=== PATIENT | female | born 1965 | race Caucasian/White ===

== ENCOUNTER 2018-09-09 08:00 | Outpatient (CLI) | payer MEDICAID ==
[2018-09-09 18:32] LABS: BASOPHILS # (AUTO) 0.1 10^3/uL (0.0-0.1); BASOPHILS % (AUTO) 0.5 %; EOSINOPHILS # (AUTO) 0.4 10^3/uL (0.0-0.7); EOSINOPHILS % (AUTO) 4.4 %; HGB - HEMOGLOBIN 11.9 g/dL (12.0-16.0); LYMPHOCYTES % (AUTO) 20.8 %; MEAN CORPUSCULAR HEMOGLOBIN 28.7 pg (27.0-31.0); MEAN CORPUSCULAR VOLUME 92.8 fL (81.0-99.0); MEAN PLATELET VOLUME 10.1 fL (7.9-10.8); MONOCYTES # (AUTO) 0.7 10^3/uL (0.0-1.0); MONOCYTES % (AUTO) 7.7 %; NEUTROPHILS # (AUTO) 6.4 10^3/uL (1.5-6.6); NEUTROPHILS % (AUTO) 66.3 %; PLT - PLATELET COUNT 274 10^3/uL (130-450); RED BLOOD COUNT 4.14 10^6/uL (4.20-5.40); RED CELL DISTRIBUTION WIDTH 18.4 % (12.0-15.0); WHITE BLOOD COUNT 9.6 x10^3/uL (4.8-10.8)
[2018-09-09 18:41] LABS: ALBUMIN 3.5 g/dL (3.2-5.5); BILIRUBIN,TOTAL 0.4 mg/dL (0.2-1.0); CALCIUM 8.6 mg/dL (8.5-10.3); CREATININE 0.9 mg/dL (0.4-1.0)
== END 2018-09-09 08:01 | disposition home or self-care (01) ==
LOC: LAB.N 08:00
PROVIDERS: ATTEND Physician Assistant Medical
DX: I10 Essential (primary) hypertension (principal); E03.9 Hypothyroidism, unspecified
CPT/HCPCS: 36415; 80053; 84443; 85025

== ENCOUNTER 2018-09-30 19:51 | Outpatient (CLI) | payer MEDICAID ==
--- NOTE | 2018-10-01 09:36 | Ultrasound Report ---
Reason: ARTERIAL BYPASS-R LEG, PVD W/CLAUDICATION, VASCULA Procedure Date: 09/30/2018 Accession Number: [id number] / [id number] Procedure: US - Duplex Ext Veins Bilateral CPT Code: FULL RESULT: EXAM: BILATERAL LOWER EXTREMITY VENOUS ULTRASOUND EXAM DATE: 09/30/2018 08:13 PM. CLINICAL HISTORY: Arterial bypass right lower extremity, peripheral vascular disease with claudication, rule out DVT. COMPARISON: None. TECHNIQUE: Real-time sonographic vascular imaging was performed by the environmental education specialist through the lower extremities utilizing both color-flow and Doppler spectral analysis. Multiple technical service representative static images were saved for review. FINDINGS: Right: Common Femoral Vein (CFV): Normal. CFV-GSV Junction: Normal. Profunda Femoral Vein (PFV): Normal. Femoral Vein (FV) Prox: Normal. Femoral Vein (FV) Mid: Normal. Femoral Vein (FV) Dist: Normal. Popliteal Vein: Normal. Posterior Tibial Veins: Normal. Peroneal Veins: Normal. Left: Common Femoral Vein (CFV): Normal. CFV-GSV Junction: Normal. Profunda Femoral Vein (PFV): Normal. Femoral Vein (FV) Prox: Normal. Femoral Vein (FV) Mid: Normal. Femoral Vein (FV) Dist: Normal. Popliteal Vein: Normal. Posterior Tibial Veins: Normal. Peroneal Veins: Normal. Other: Slightly suboptimal visualization diffusely secondary to body habitus. IMPRESSION: No evidence for deep venous thrombosis bilaterally. RADIA
--- NOTE | 2018-10-02 08:30 | Ultrasound Report ---
Reason: ARTERIAL BYPASS-R LEG, PVD W/CLAUDICATION, VASCULA Procedure Date: 09/30/2018 Accession Number: [id number] / [id number] Procedure: US - Duplex Lwr Ext Arterial Bilat CPT Code: FULL RESULT: EXAM: Bilateral Lower Extremity Arterial Doppler Ultrasound EXAM DATE: 09/30/2018 08:58 PM. CLINICAL HISTORY: Arterial bypass right leg, peripheral vascular disease with claudication, vascular disease. COMPARISON: None. TECHNIQUE: Real-time sonographic vascular imaging was performed by the oven laborer, utilizing color-flow, Doppler flow, and spectral analysis. Multiple wireless sales representative static images were saved for review. FINDINGS: Comparison imaging not available. Patient could not communicate adequately the previous surgical history. This significantly limits the evaluation. On the right, biphasic waveforms are noted in the right common femoral, distal popliteal, distal posterior tibial and the dorsalis pedis arteries. Remaining vessels of the right leg demonstrate diffuse monophasic waveforms. There is a bypass originating from the right common femoral artery and extending distally. Bypass remains patent. No focal stenosis in the bypass graft. Bypass appears to feed the distal right superficial femoral or popliteal artery. There is significant increase in velocity at the distal right popliteal artery compared to the more proximal segment. Spectral waveforms are suggestive of a stenosis of 50-75%. However, no focal area of stenosis identified on color or ba scale imaging. Possible right popliteal artery stent noted. Right anterior tibial, posterior tibial, peroneal and dorsalis pedis arteries are patent but demonstrate slow flow. On the left, diffuse monophasic waveforms are seen in all insonated vessels. No focal area of stenosis identified. Arterial Velocities: Right Lower Extremity: FEED HOUSE SUPERVISOR [place]: PSV 71 cm/sec. FEED HOUSE SUPERVISOR bypass: PSV 149 cm/sec. PSFA [place]: PSV 48 cm/sec. PSFA bypass: PSV 72 cm/sec. MSFA [place]: PSV 22 cm/sec. MSFA bypass: PSV 42 cm/sec. DSFA bypass: PSV 21 cm/sec. PFA: PSV 33 cm/sec. POP proximal: PSV 64 cm/sec. POP distal: PSV 230 cm/sec. BISMARK: PSV 55 cm/sec. J2EE ENGINEER distal: PSV 39 cm/sec. J2EE ENGINEER proximal: PSV 56 cm/sec. FRAN: PSV 45 cm/sec. DPA: PSV 51 cm/sec. Left Lower Extremity: FEED HOUSE SUPERVISOR: PSV 119 cm/sec. PSFA: PSV 36 cm/sec. MSFA: PSV 39 cm/sec. DSFA: PSV 58 cm/sec. PFA: PSV 78 cm/sec. POP: PSV 53 cm/sec. BISMARK: PSV 19 cm/sec. J2EE ENGINEER: PSV 6 cm/sec. FRAN: PSV 28 cm/sec. DPA: PSV 23 cm/sec. IMPRESSION: 1. Significant limitation of this study. Patient is a poor historian and cannot provide surgical history. No comparison imaging available. In addition, no prior reports provided. 2. On the right, patient is status post bypass from the right common femoral artery to the popliteal or distal femoral artery. This probably represents a femoral-popliteal bypass. Graft is patent. No focal graft stenosis is noted. 3. Elevated velocities are noted in the distal right popliteal artery compared to the more proximal segment. However, no focal color or grayscale abnormality suggesting stenosis is noted. CT angiogram with runoff could be used for confirmation and to evaluate a potential occult stenosis. 4. Diffusely abnormal monophasic waveforms extending from the left common femoral artery to the ankle without focal area of high-grade stenosis. More central high-grade stenosis not excluded. RADIA
== END 2018-09-30 19:52 | disposition home or self-care (01) ==
LOC: DI 19:51
PROVIDERS: ATTEND Nurse Practitioner Gerontology
DX: I73.9 Peripheral vascular disease, unspecified (principal); Z95.9 Presence of cardiac and vascular implant and graft, unspecified
CPT/HCPCS: 93925; 93970

== ENCOUNTER 2018-10-31 09:31 | Outpatient (CLI) | payer MEDICAID ==
--- NOTE | 2018-11-01 10:19 | XRAY Report ---
Reason: PRODUCTIVE COUGH Procedure Date: 10/31/2018 Accession Number: [id number] / [id number] Procedure: XRN - Chest 2 View X-Ray CPT Code: 72667 FULL RESULT: EXAM: CHEST RADIOGRAPHY EXAM DATE: 10/31/2018 10:02 AM. CLINICAL HISTORY: Productive cough. COMPARISON: None. TECHNIQUE: 2 views. FINDINGS: Lungs/Pleura: No focal opacities evident. No pleural effusion. No pneumothorax. Normal volumes. Mediastinum: Heart and mediastinal contours are unremarkable. Other: No fractures identified. IMPRESSION: Normal 2-view chest radiography. RADIA
== END 2018-10-31 09:32 | disposition home or self-care (01) ==
LOC: DI.N 09:31
PROVIDERS: ATTEND Family Medicine
DX: R05 Cough (principal)
CPT/HCPCS: 71046

== ENCOUNTER 2018-11-05 10:24 | Outpatient (CLI) | payer MEDICAID ==
[2018-11-05 12:47] LABS: THYROID STIMULATING HORMONE 1.8 uIU/mL (0.34-5.60)
[2018-11-05 12:49] LABS: FREE T4 (FREE THYROXINE) 1.47 ng/dL (0.58-1.64)
== END 2018-11-05 23:59 | disposition home or self-care (01) ==
LOC: LAB.N 10:24
PROVIDERS: ATTEND Physician Assistant Medical
DX: E03.9 Hypothyroidism, unspecified (principal)
CPT/HCPCS: 36415; 84439; 84443

== ENCOUNTER 2019-02-01 17:39 | Emergency (ER) | payer MEDICAID ==
[2019-02-01] MEDS ORDERED: SODIUM CHLORIDE 0.9% 1,000 ML IV ONE (18:03)
[2019-02-01] MEDS ORDERED: MECLIZINE 12.5 MG TABLET PO STA (18:03)
--- NOTE | 2019-02-01 18:09 | ED Physician Documentation ---
History of Present Illness - Stated complaint Stated Complaint: DIZZY, HEAD ACHE, RT EAR PX - Chief complaint Chief Complaint: Cardiac - History obtained from History obtained from: Patient - History of Present Illness Pain level max: 3 Pain level now: 2 Improved by: lying down Worsened by: standing up - Additonal information Additional information: 53-year-old female presents to the emergency department after feeling lightheaded earlier today. She states she felt like she was going to fall and pass out. No chest pain. No palpitations. No shortness of breath. The room was not spinning. No focal neurological deficits. No numbness or tingling. She states that she has peripheral arterial disease. She continues to smoke heavily. She also states that she does not drink any water, she only drinks diet Pepsi and states that she has a can in her hand "04/09". Review of Systems Constitutional: denies: Fever, Chills Ears: reports: Ear pain (R) Nose: reports: Rhinorrhea / runny nose, Congestion Respiratory: reports: Cough (dry) GI: denies: Abdominal Pain, Vomiting, Diarrhea Skin: denies: Rash Musculoskeletal: denies: Neck pain, Back pain Neurologic: denies: Focal weakness, Numbness, Confused, Headache PD PAST MEDICAL HISTORY - Past Medical History Past Medical History: Yes Cardiovascular: Hypertension, Other (Peripheral arterial disease) - Present Medications Home Medications: Ambulatory Orders Medication Instructions Recorded Confirmed Cetirizine HCl/Pseudoephedrine 1 each PO BID PRN #30 tab.er.12h 02/01/19 [Zyrtec-D Tablet] - Allergies Allergies/Adverse Reactions: Allergies Allergy/AdvReac Type Severity Reaction Status Date / Time oxycodone [From OxyContin] Allergy Itching Verified 02/01/19 17:54 - Living Situation Living Situation: reports: With family Living Arrangement: reports: At home - Social History Does the pt smoke?: Yes Does the pt drink ETOH?: Yes - Family History Family history: reports: Non contributory PD ED PE NORMAL - Vitals Vital signs reviewed: Yes - General General: Alert and oriented X 3, No acute distress, Well developed/nourished - HEENT HEENT: Atraumatic, PERRL, EOMI, Ears normal, Moist mucous membranes, Pharynx benign - Neck Neck: Supple, no meningeal sign, No bony TTP - Cardiac Cardiac: RRR, Strong equal pulses - Respiratory Respiratory: No respiratory distress, Clear bilaterally - Abdomen Abdomen: Soft, Non tender, Non distended - Back Back: No spinal TTP - Derm Derm: Warm and dry - Extremities Extremities: No tenderness to palpate, Normal ROM s pain, No edema, No calf tenderness / cord - Neuro Neuro: Alert and oriented X 3, billing clerk 2-12 intact, No motor deficit, No sensory deficit, Normal speech, Other (Normal cerebellar testing. Normal [id number]. Normal gait. No nystagmus.) Eye Opening: Spontaneous Motor: Obeys Commands Verbal: Oriented GCS Score: 15 - Psych Psych: Normal mood, Normal affect Results - Vitals Vitals: Vital Signs - 24 hr 02/01/19 02/01/19 17:49 19:41 Temperature 36.6 C Heart Rate 77 76 Respiratory 15 18 Rate Blood Pressure 185/95 H 177/83 H O2 Saturation 100 100 Oxygen O2 Source Room air - EKG (time done) 1748 Rate: Rate (enter#) (76) Rhythm: NSR [place]: Normal Intervals: Normal ID QRS: Normal Ischemia: Normal ST segments - Labs Labs: Laboratory Tests 02/01/19 02/01/19 02/01/19 18:05 18:05 18:15 WBC 12.1 H RBC 4.48 Hgb 12.2 Hct 38.9 MCV 86.8 MCH 27.2 MCHC 31.4 L RDW 17.4 H Plt Count 318 MPV 9.1 Neut # (Auto) 7.6 H Lymph # (Auto) 3.0 [place] # (Auto) 1.0 Eos # (Auto) 0.4 Baso # (Auto) 0.1 Absolute Nucleated RBC 0.00 Nucleated RBC % 0.0 Sodium 139 Potassium 3.5 Chloride 104 Carbon Dioxide 25 Anion Gap 10.0 BUN 17 Creatinine 1.0 Estimated GFR (MDRD) 58 L Glucose 102 H Calcium 9.1 Total Bilirubin 0.4 AST 18 ALT 14 Alkaline Phosphatase 143 H Total Protein 7.6 Albumin 3.8 Globulin 3.8 Albumin/Globulin Ratio 1.0 Lipase 40 Urine Color YELLOW Urine Clarity CLEAR Urine pH 6.0 Ur Specific [place] <=1.005 Urine Protein NEGATIVE Urine Glucose (UA) NEGATIVE Urine Ketones NEGATIVE Urine Occult Blood TRACE-INTA Urine Nitrite NEGATIVE Urine Bilirubin NEGATIVE Urine Urobilinogen 0.2 (NORMAL) Ur Leukocyte Esterase NEGATIVE Ur Microscopic Review NOT INDICATED Urine Culture Comments NOT INDICATED PD MEDICAL DECISION MAKING - ED course Complexity details: reviewed results, re-evaluated patient, considered differential, d/w patient ED course: 53-year-old female presents to the emergency department what appears to be dehydration. Feels better after IV fluids. Also appears to have a viral upper respiratory infection. No evidence of vertigo. No evidence of cerebellar stroke. Patient is well-appearing, nontoxic. Normal gait. Patient counseled regarding signs and symptoms for which I believe and urgent re-evaluation would be necessary. Patient with good understanding of and agreement to plan and is comfortable going home at this time This document was made in part using voice recognition software. While efforts are made to proofread this document, sound alike and grammatical errors may occur. No evidence of vestibular neuritis. Departure - Departure Disposition: 01 Home, Self Care Clinical Impression: Viral URI, Dehydration, Lightheadedness Condition: Good Instructions: ED Dehydration, ED Viral Syndrome Follow-Up: Aamir Kern PA-C [Primary Care Provider] - Within 1 week Prescriptions: Cetirizine HCl/Pseudoephedrine [Zyrtec-D Tablet] 1 each PO BID PRN #30 tab.er.12h PRN Reason: nasal congestion Comments: Drink plenty of water at home. Return if you worsen. Follow-up with your doctor if not better within 1 week. Discharge Date/Time: 02/01/19 19:45
[2019-02-01 18:11] LABS: BASOPHILS # (AUTO) 0.1 10^3/uL (0.0-0.1); BASOPHILS % (AUTO) 0.7 %; EOSINOPHILS # (AUTO) 0.4 10^3/uL (0.0-0.7); EOSINOPHILS % (AUTO) 3.4 %; HGB - HEMOGLOBIN 12.2 g/dL (12.0-16.0); LYMPHOCYTES % (AUTO) 24.3 %; MEAN CORPUSCULAR HEMOGLOBIN 27.2 pg (27.0-31.0); MEAN CORPUSCULAR HGB CONC 31.4 g/dL (32.0-36.0); MEAN CORPUSCULAR VOLUME 86.8 fL (81.0-99.0); MEAN PLATELET VOLUME 9.1 fL (7.9-10.8); MONOCYTES % (AUTO) 8.5 %; NEUTROPHILS # (AUTO) 7.6 10^3/uL (1.5-6.6); NEUTROPHILS % (AUTO) 62.5 %; PLT - PLATELET COUNT 318 10^3/uL (130-450); RED BLOOD COUNT 4.48 10^6/uL (4.20-5.40); RED CELL DISTRIBUTION WIDTH 17.4 % (12.0-15.0); WHITE BLOOD COUNT 12.1 x10^3/uL (4.8-10.8)
[2019-02-01 18:25] LABS: ALBUMIN 3.8 g/dL (3.2-5.5); BILIRUBIN,TOTAL 0.4 mg/dL (0.2-1.0); CALCIUM 9.1 mg/dL (8.5-10.3); TOTAL PROTEIN 7.6 g/dL (6.7-8.2)
[2019-02-01] MEDS ORDERED: MECLIZINE 12.5 MG TABLET PO ONE (18:29)
[2019-02-01 18:31] LABS: BILIRUBIN,URINE NEGATIVE (NEGATIVE); GLUCOSE, URINE (UA) NEGATIVE (NEGATIVE); KETONES,URINE (UA) NEGATIVE (NEGATIVE); LEUKOCYTE ESTERASE, URINE NEGATIVE (NEGATIVE); NITRITE,URINE NEGATIVE (NEGATIVE); OCCULT BLOOD,URINE TRACE-INTA (NEGATIVE); PROTEIN,URINE NEGATIVE (NEGATIVE); UROBILINOGEN,URINE 0.2 (NORMAL) E.U./dL (NORMAL)
[2019-02-01 18:33] LABS: CLARITY,URINE CLEAR (CLEAR)
[2019-02-01 19:42] VITALS: BP 177/83
== END 2019-02-01 19:45 | disposition home or self-care (01) ==
LOC: ED 17:39
DX: E86.0 Dehydration (principal); R42 Dizziness and giddiness; J06.9 Acute upper respiratory infection, unspecified; I10 Essential (primary) hypertension; I73.9 Peripheral vascular disease, unspecified; F17.200 Nicotine dependence, unspecified, uncomplicated
CPT/HCPCS: 36415; 80053; 81003; 83690; 85025; 93005; 96360; 99284; A9270; 81001; 87086

== ENCOUNTER 2019-07-15 11:02 | Emergency (ER) | payer MEDICAID ==
--- NOTE | 2019-07-15 11:30 | ED Physician Documentation ---
PD HPI BACK PAIN - Stated complaint Stated Complaint: BACK PX - Chief complaint Chief Complaint: Back Pain - History obtained from History obtained from: Patient - History of Present Illness Timing - onset: How many days ago (5-6) Timing - duration: Days (onset 5-6 days ago of low back pain with painting a deck. Pain worse after ends of days. Not hurting as much while painting. Pain worse with stiffness last evening and overnight. Hurts with ROm this morning.) Timing - details: Gradual onset, Still present (worse last night and today, with ROM), Waxing and waning Location: Lower, Right, Left Quality: Pain, Spasm. No: Sharp, Tearing Associated symptoms: No: Fever, Weakness, Numbness, Incontinent of urine Improves with: Rest Worsened by: Movement, Twisting. 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 : None HEENT: None Psych: None Musculoskeletal: None Derm: None - Past Surgical History Past Surgical History: No - Present Medications Home Medications: Ambulatory Orders Medication Instructions Recorded Confirmed Cetirizine HCl/Pseudoephedrine 1 each PO BID PRN #30 tab.er.12h 02/01/19 [Zyrtec-D Tablet] Hydrocodone/Acetaminophen 1 - 2 each PO Q6H PRN #20 tablet 07/15/19 [Hydrocodon-Acetaminophen 5-325] Naproxen 500 mg PO BID #20 tablet 07/15/19 Tizanidine HCl 4 mg PO TID PRN #25 capsule 07/15/19 dexAMETHasone [Decadron] 4 mg PO DAILY #5 tablet 07/15/19 - Allergies Allergies/Adverse Reactions: Allergies Allergy/AdvReac Type Severity Reaction Status Date / Time oxycodone [From OxyContin] AdvReac Itching Verified 07/15/19 11:07 - Social History Does the pt smoke?: Yes Smoking Status: Current every day smoker Does the pt drink ETOH?: Yes PD ED PE NORMAL - Vitals Vital signs reviewed: Yes - General General: Alert and oriented X 3, Well developed/nourished, Other (appears uncomfortable and has stiff/guarded ROM of the lower back. Hurts most with arching and twisting low back, as she demonstrates the movements that hurt worst. ) - Neck Neck: Supple, no meningeal sign, No adenopathy - Cardiac Cardiac: RRR, No murmur - Respiratory Respiratory: Clear bilaterally - Abdomen Abdomen: Normal bowel sounds, Soft, Non tender, Non distended - Back Back: No CVA TTP, No spinal TTP (tender some in lower lumbar paravertebral muscles. No focal tenderness. No redness, rash nor sores. ) - Derm Derm: Normal color, Warm and dry, No rash - Extremities Extremities: No edema, No calf tenderness / cord - Neuro Neuro: Alert and oriented X 3, No motor deficit, No sensory deficit, Normal sp eech Results - Vitals Vitals: Vital Signs - 24 hr 07/15/19 07/15/19 07/15/19 11:07 12:11 13:27 Temperature 36.4 C L Heart Rate 93 79 88 Respiratory 20 18 18 Rate Blood Pressure 167/102 H 154/94 H 144/86 H O2 Saturation 100 97 96 Oxygen O2 Source Room air PD MEDICAL DECISION MAKING - ED course Complexity details: re-evaluated patient (back pain improving but after the meds, she said she developed some epigastric/lower chest pressure. ECG normal and symptoms improved with GI cocktail. Feeling some what lightheaded after meds. ), considered differential, d/w patient Departure - Departure Disposition: 01 Home, Self Care Clinical Impression: Acute low back pain Qualifiers: Back pain laterality: bilateral Sciatica presence: without sciatica Qualified Code(s): M54.5 - Low back pain Condition: Stable Record reviewed to determine appropriate education?: Yes Instructions: ED Low Back Pain Injury Prescriptions: dexAMETHasone [Decadron] 4 mg PO DAILY #5 tablet Hydrocodone/Acetaminophen [Hydrocodon-Acetaminophen 5-325] 1 - 2 each PO Q6H PRN #20 tablet PRN Reason: pain Naproxen 500 mg PO BID #20 tablet Tizanidine HCl 4 mg PO TID PRN #25 capsule PRN Reason: Spasms Comments: Heat or cold whichever feels better. Gentle stretching for the low back. Physical treatments such as massage and chiropractic are good for this as well. Anti-inflammatories of naproxen and steroidal Decadron as directed. Add tizanidine muscle relaxant for spasm and stiffness. To that add Tylenol 4 times a day for pain or hydrocodone for worse pain. Recheck if not improving well over the next several days and resolved in a week or so, and return if worsening. Discharge Date/Time: 07/15/19 13:31
[2019-07-15] MEDS ORDERED: HYDROmorphone 2 MG/ML VIAL IM STA (11:43)
[2019-07-15] MEDS ORDERED: diazePAM 5 MG TABLET PO STA (11:43)
[2019-07-15] MEDS ORDERED: KETOROLAC 30 MG/ML VIAL IM STA (11:43)
[2019-07-15] MEDS ORDERED: CHERRY SYRUP 10 ML UDC PO ONE (11:43)
[2019-07-15] MEDS ORDERED: DEXAMETHASONE 10 MG/ML VIAL PO STA (11:43)
[2019-07-15] MEDS ORDERED: MAG HYDROX/AL HYDROX/SIMETH 30 ML UDC PO STA (12:52)
[2019-07-15] MEDS ORDERED: LIDOCAINE VISCOUS 2% 15 ML UDC MM STA (12:52)
[2019-07-15 13:31] VITALS: BP 144/86
== END 2019-07-15 13:31 | disposition home or self-care (01) ==
LOC: ED 11:02
DX: M54.5 Low back pain (principal); R10.13 Epigastric pain; I10 Essential (primary) hypertension; F17.200 Nicotine dependence, unspecified, uncomplicated
CPT/HCPCS: 93005; 96372; 99283; 99284; A9270; J1170

== ENCOUNTER 2019-11-11 13:37 | Outpatient (CLI) | payer MEDICAID ==
[2019-11-11 14:44] LABS: BASOPHILS # (AUTO) 0.1 10^3/uL (0.0-0.1); BASOPHILS % (AUTO) 0.6 %; EOSINOPHILS # (AUTO) 0.4 10^3/uL (0.0-0.7); EOSINOPHILS % (AUTO) 4.9 %; HGB - HEMOGLOBIN 12.6 g/dL (12.0-16.0); LYMPHOCYTES # (AUTO) 2.2 10^3/uL (1.5-3.5); LYMPHOCYTES % (AUTO) 26.6 %; MEAN CORPUSCULAR HEMOGLOBIN 26.9 pg (27.0-31.0); MEAN CORPUSCULAR HGB CONC 32.1 g/dL (32.0-36.0); MEAN CORPUSCULAR VOLUME 83.8 fL (81.0-99.0); MEAN PLATELET VOLUME 9.4 fL (7.9-10.8); MONOCYTES # (AUTO) 0.5 10^3/uL (0.0-1.0); NEUTROPHILS # (AUTO) 5.2 10^3/uL (1.5-6.6); NEUTROPHILS % (AUTO) 61.5 %; PLT - PLATELET COUNT 355 10^3/uL (130-450); RED BLOOD COUNT 4.68 10^6/uL (4.20-5.40); RED CELL DISTRIBUTION WIDTH 16.7 % (12.0-15.0); WHITE BLOOD COUNT 8.4 x10^3/uL (4.8-10.8)
[2019-11-11 14:57] LABS: ALBUMIN 3.8 g/dL (3.2-5.5); ALBUMIN/GLOBULIN RATIO 1.1 (1.0-2.2); ALKALINE PHOSPHATASE 167 IU/L (42-121); ALT ALANINE AMINOTRANSFERASE 24 IU/L (10-60); AST ASPARTATE AMINOTRANSFERASE 21 IU/L (10-42); BILIRUBIN,TOTAL 0.5 mg/dL (0.2-1.0); BUN - BLOOD UREA NITROGEN 17 mg/dL (6-20); CALCIUM 9.4 mg/dL (8.5-10.3); CARBON DIOXIDE - CO2 24 mmol/L (21-32); CHLORIDE 104 mmol/L (101-111); CHOL/HDL RATIO 4.8 (<4.4); CHOLESTEROL 157 mg/dL; GLUCOSE 174 mg/dL (70-100); HDL CHOLESTEROL 33 mg/dL; LDL CHOLESTEROL,CALCULATED 84 mg/dL; LDL/HDL RATIO 2.5 (<4.4); SODIUM 139 mmol/L (135-145); TOTAL PROTEIN 7.2 g/dL (6.7-8.2); VLDL CHOLESTEROL 40 mg/dL
[2019-11-11 16:23] LABS: FREE T4 (FREE THYROXINE) 1.76 ng/dL (0.58-1.64)
--- NOTE | 2019-11-11 16:38 | DEXA Report ---
PROCEDURE: Dexa Spine and/or Hip INDICATIONS: POSTMENOPAUSAL TECHNIQUE: Dual energy x-ray absorptiometry (DXA) was performed on a Hoods System. Regions measur ed are the AP Spine, femoral neck, and if needed forearm. COMPARISON: None. FINDINGS: Lumbar Spine: Bone Mineral Density 0.928 g/cm/cm,T score -2.1, osteopenia Left Hip: Bone Mineral Density 0.925 g/cm/cm,T score -0.7, normal Left Femoral Neck: Bone Mineral Density 1.030 g/cm/cm, T score -0.1, normal (T score greater or equal to -1.0: NORMAL) (T score from -1.1 to -2.4: OSTEOPENIA) (T score less than or equal to -2.5 to: OSTEOPOROSIS) Impression: 1. Osteopenia in the lumbar spine raises the patient's 10 year fracture risk. 2. Normal left hip bone mineral density. Patients with diagnosis of osteoporosis or osteopenia should have regular bone mineral density assess ment. For those eligible for Medicare, routine testing is allowed once every 2 years. Testing frequ ency can be increased for patients who have rapidly progressing disease or for those who are receivin g medical therapy to restore bone mass. Reviewed by: Aliya Sheriff MD on 11/11/2019 4:37 PM PDT Approved by: Aliay Sheriff MD on 11/11/2019 4:37 PM PDT Station ID: [id number]
[2019-11-11 20:43] LABS: HEMOGLOBIN A1c% 6.9 % (4.27-6.07)
== END 2019-11-11 13:38 | disposition home or self-care (01) ==
LOC: DI 13:37
PROVIDERS: ATTEND Nurse Practitioner Family
DX: M85.88 Other specified disorders of bone density and structure, other site (principal); Z78.0 Asymptomatic menopausal state; E03.9 Hypothyroidism, unspecified; I10 Essential (primary) hypertension; E66.3 Overweight; F32.9 Major depressive disorder, single episode, unspecified
CPT/HCPCS: 36415; 77080; 80053; 80061; 83036; 83721; 84439; 84443; 85025

== ENCOUNTER 2019-11-28 08:18 | Outpatient (CLI) | payer MEDICAID ==
--- NOTE | 2019-12-09 15:49 | Mammography Report ---
BILATERAL DIGITAL SCREENING MAMMOGRAM 3D/2D: 11/28/2019 CLINICAL: Family history of breast cancer. Routine screening. No prior exams were available for comparison. The tissue of both breasts is predominantly fatty. No significant masses, calcifications, or other findings are seen in either breast. IMPRESSION: NEGATIVE There is no mammographic evidence of malignancy. A 1 year screening mammogram is recommended. This exam was interpreted at Station ID: [id number]. NOTE: For mammograms, a report in lay terms will be sent to the patient. Approximately 15% of breast malignancies will not be visualized mammographically. In the management of a palpable breast mass, a negative mammogram must not discourage biopsy of a clinically suspicious lesion. Electronically Signed By: Aliya su/ashleigh:12/08/2019 14:30:45 ACR BI-RADS Category 1: Negative 3341F PARENCHYMAL PATTERN: (F) - The breast(s) demonstrate(s) diffuse fatty replacement. BI-RADS CATEGORY: (1) - 1 RECOMMENDATION: (ANNUAL) - Recommend routine annual screening mammography. [id number] 1 year screening LATERALITY: (B)
== END 2019-11-28 08:19 | disposition home or self-care (01) ==
LOC: DI.N 08:18
DX: Z12.31 Encounter for screening mammogram for malignant neoplasm of breast (principal); Z80.3 Family history of malignant neoplasm of breast
CPT/HCPCS: 77063; 77067

== ENCOUNTER 2020-01-03 12:32 | Emergency (ER) | payer MEDICAID ==
--- NOTE | 2020-01-03 13:21 | ED Physician Documentation ---
History of Present Illness - Stated complaint Stated Complaint: RT LEG PX/BURNING - Chief complaint Chief Complaint: Ext Problem - History obtained from History obtained from: Patient - Additonal information Additional information: 54-year-old woman has had extensive issues with peripheral vascular disease in her legs. Her vascular surgeon is Dr. Thakur in [place]. She has had a bypass in the right leg followed by angioplasties in the left followed by some sort of other bypass in the left. Over the last week she has had rapidly progressive claudication of the right leg, a burning after about 30 steps which goes away with rest. She is on a blood thinner, She does not know which one. She was on Plavix but that was switched to something else because it was not working, then she was switched to something else which she does not know because her insurance would not pay for the second 1. Anyway the current blood thinner is once a day. She does not recognize the name Bro. 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 : None HEENT: None Psych: None Musculoskeletal: None Derm: None - Past Surgical History Past Surgical History: No - Present Medications Home Medications: Ambulatory Orders Medication Instructions Recorded Confirmed Cetirizine HCl/Pseudoephedrine 1 each PO BID PRN #30 tab.er.12h 02/01/19 [Zyrtec-D Tablet] Hydrocodone/Acetaminophen 1 - 2 each PO Q6H PRN #20 tablet 07/15/19 [Hydrocodon-Acetaminophen 5-325] Naproxen 500 mg PO BID #20 tablet 07/15/19 Tizanidine HCl 4 mg PO TID PRN #25 capsule 07/15/19 dexAMETHasone [Decadron] 4 mg PO DAILY #5 tablet 07/15/19 - Allergies Allergies/Adverse Reactions: Allergies Allergy/AdvReac Type Severity Reaction Status Date / Time oxycodone [From OxyContin] AdvReac Itching Verified 01/03/20 12:35 - Social History Does the pt smoke?: Yes Smoking Status: Current every day smoker Does the pt drink ETOH?: Yes PD ED PE NORMAL - Vitals Vital signs reviewed: Yes - General General: Alert and oriented X 3, No acute distress - Cardiac Cardiac: RRR, No murmur - Respiratory Respiratory: No respiratory distress, Clear bilaterally - Abdomen Abdomen: Non tender - Back Back: No CVA TTP, No spinal TTP - Derm Derm: Normal color, Warm and dry - Extremities Extremities: Other (Pulses on either side, but her feet do seem warm and well perfused. No calf tenderness or swelling.) - Neuro Neuro: Alert and oriented X 3, Normal speech Results - Vitals Vitals: Vital Signs - 24 hr 01/03/20 01/03/20 01/03/20 12:35 15:10 16:28 Temperature 36.6 C 36.5 C 36.7 C Heart Rate 90 70 77 Respiratory 16 18 18 Rate Blood Pressure 165/74 H 147/80 H 154/91 H O2 Saturation 100 100 100 Oxygen O2 Source Room air - Labs Labs: Laboratory Tests 01/03/20 01/03/20 13:15 13:15 WBC 8.5 RBC 4.80 Hgb 13.0 Hct 39.8 MCV 82.9 MCH 27.1 MCHC 32.7 RDW 18.3 H Plt Count 341 MPV 9.2 Neut # (Auto) 5.1 Lymph # (Auto) 2.2 Dunn # (Auto) 0.7 Eos # (Auto) 0.4 Baso # (Auto) 0.1 Absolute Nucleated RBC 0.00 Nucleated RBC % 0.0 Sodium 138 Potassium 3.0 L Chloride 101 Carbon Dioxide 27 Anion Gap 10.0 BUN 16 Creatinine 1.0 Estimated GFR (MDRD) 58 L Glucose 118 H Calcium 9.4 - Rads (name of study) CT angiography of the abdomen with runoff Radiology: EMP read contemporaneously (Patent common iliac artery stents, patent left superficial femoral artery stent. 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 One-vessel runoff on the right and two-vessel runoff on the left.) PD MEDICAL DECISION MAKING - ED course ED course: 54-year-old woman with progressive claudication in the setting of known peripheral vascular disease was sent in by her vascular surgeon for CT and findings as shown. I discussed the case by phone with him, Dr Thakur, and they will see her early this week. Departure - Departure Disposition: 01 Home, Self Care Clinical Impression: Claudication Condition: Good Record reviewed to determine appropriate education?: Yes Instructions: ED PVD Comments: You should hear from Dr. Thakur's office by 10am Sunday. If not call [phone] to see him Discharge Date/Time: 01/03/20 16:30
[2020-01-03 13:25] LABS: BASOPHILS # (AUTO) 0.1 10^3/uL (0.0-0.1); BASOPHILS % (AUTO) 0.7 %; EOSINOPHILS # (AUTO) 0.4 10^3/uL (0.0-0.7); EOSINOPHILS % (AUTO) 4.4 %; LYMPHOCYTES # (AUTO) 2.2 10^3/uL (1.5-3.5); LYMPHOCYTES % (AUTO) 26.4 %; MEAN CORPUSCULAR HEMOGLOBIN 27.1 pg (27.0-31.0); MEAN CORPUSCULAR HGB CONC 32.7 g/dL (32.0-36.0); MEAN CORPUSCULAR VOLUME 82.9 fL (81.0-99.0); MEAN PLATELET VOLUME 9.2 fL (7.9-10.8); MONOCYTES # (AUTO) 0.7 10^3/uL (0.0-1.0); MONOCYTES % (AUTO) 8.2 %; NEUTROPHILS # (AUTO) 5.1 10^3/uL (1.5-6.6); NEUTROPHILS % (AUTO) 60.1 %; PLT - PLATELET COUNT 341 10^3/uL (130-450); RED CELL DISTRIBUTION WIDTH 18.3 % (12.0-15.0); WHITE BLOOD COUNT 8.5 x10^3/uL (4.8-10.8)
[2020-01-03 13:34] LABS: CALCIUM 9.4 mg/dL (8.5-10.3)
[2020-01-03] MEDS ORDERED: IOVERSOL 320 100 ML VIAL IVP ONE ×3 (14:03→17:39)
--- NOTE | 2020-01-03 15:56 | CT Report ---
PROCEDURE: ANGIO ABD RUNOFF W/WO - B/L INDICATIONS: Progressive claudication with unclear vascular maureen CONTRAST: IV CONTRAST: Optiray 320 ml: 125 PO CONTRAST: *NO PO CONTRAST TECHNIQUE: After the administration of intravenous contrast, 2 and 5 mm sections acquired from T12 to the feet, with optional delayed image acquisition from the knees to the feet. 3-dimensional maximum intensity projection (MIP) coronal and sagittal reformats, and/or 3-dimensional volume rendering reformatting w as then performed. For radiation dose reduction, the following was used: automated exposure control , adjustment of mA and/or kV according to patient size. COMPARISON: Correlation is made with prior lower extremity arterial ultrasound, 09/30/2018 FINDINGS: Image quality: Excellent. Extravascular tissues: Lung bases are clear. Heart size is normal. Liver the liver demonstrates no rmal size. Increased liver echogenicity is seen. This is nonspecific, yet it is most commonly attribu rubin to fatty infiltration. Gallbladder is not definitely seen Biliary system is non dilated. The sp yasmine demonstrates a lobulated appearance, yet without focal masses. Pancreas enhances normally. No a drenal nodules. Kidneys are normal in size and enhancement, without hydronephrosis. Non opacified b owel loops demonstrate normal wall thickness and enhancement. A normal appendix is incidentally note d. No free fluid or air. No retroperitoneal or mesenteric adenopathy. No ventral hernias. Bladde r wall thickness is normal. This patient is status post hysterectomy. No adnexal masses can be seen. No inguinal hernias or adenopathy. No suspicious bony lesions. No vertebral body compression frac tures. Abdominal aorta: The aorta demonstrates atherosclerotic calcification and irregularity. No aneurysm is seen. No kanwal stenosis can be seen. Right lower extremity: The right lower extremity arterial system demonstrates atherosclerotic calcif ication and irregularity. There is approximately 50% narrowing seen involving the right common iliac artery, just proximal to the patent right common iliac stent. Irregular flow seen within the right in ternal iliac artery. The right external iliac artery demonstrates 60-70% stenosis. The right common f emoral artery is within normal limits. The right profunda femoris artery is unremarkable. Atheroscler otic irregularity is seen within the right superficial femoral artery, yet without a focal stenosis. There is a right distal superficial artery aneurysm seen, with partial thrombosis, with approximately 90% narrowing. Normal flow seen within the right popliteal artery. The right anterior cerebral arter y demonstrates normal flow to its distal aspect. The right posterior tibial artery is occluded proxim al. The right peroneal artery is occluded distally. Left lower extremity: The left lower extremity arterial system demonstrates atherosclerotic irregula rity throughout. There is a patent left common iliac stent. Approximately 50% narrowing is seen just beyond the left common iliac artery stent. There is poor flow seen within the left internal iliac art sudha. The left external iliac artery demonstrates irregularity, with no without a focal narrowing. The left common iliac artery and profunda femoris artery are within normal limits. The left superficial femoral artery is occluded. There is a patent left superficial artery that is seen that joins with th e arterial system at the popliteal region. The popliteal artery is irregular, yet patent. Normal flow is seen at the distal aspects of the left anterior and posterior tibial arteries. There is poor flow at the distal left peroneal artery. IMPRESSION: Patent common iliac artery stents are seen. There is a patent left superficial femoral artery stent. 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 Please consider interventional radiology consultation One-vessel runoff is seen on the right and there is two-vessel runoff seen on the left. Incidental note is made of: Presumed cholecystectomy Hysterectomy Normal appendix Reviewed by: David Curry MD on 01/03/2020 2:55 PM [facility] Approved by: David Curry MD on 01/03/2020 2:55 PM [facility] Station ID: [id number]
[2020-01-03 16:29] VITALS: BP 154/91
== END 2020-01-03 16:30 | disposition home or self-care (01) ==
LOC: ED 12:32
DX: I73.9 Peripheral vascular disease, unspecified (principal); I74.3 Embolism and thrombosis of arteries of the lower extremities; Z79.01 Long term (current) use of anticoagulants; I10 Essential (primary) hypertension; F17.200 Nicotine dependence, unspecified, uncomplicated
CPT/HCPCS: 36415; 75635; 80048; 85025; 99284; Q9967

== ENCOUNTER 2020-04-26 16:34 | Outpatient (CLI) | payer MEDICAID | END 2020-04-26 16:35 | disposition home or self-care (01) | LOC: COV 16:34 | PROVIDERS: ATTEND Surgery | DX: Z01.812 Encounter for preprocedural laboratory examination (principal); K21.9 Gastro-esophageal reflux disease without esophagitis; R10.9 Unspecified abdominal pain; K62.5 Hemorrhage of anus and rectum; E11.9 Type 2 diabetes mellitus without complications; Z20.822 Contact with and (suspected) exposure to COVID-19 ==

== ENCOUNTER 2020-04-29 12:32 | Day surgery (SDC) | payer MEDICAID ==
[2020-04-29] MEDS ORDERED: LACTATED RINGERS 1,000 ML IV ONE ×2 (13:00→14:54)
[2020-04-29] MEDS ORDERED: ONDANSETRON 4 MG/2 ML VIAL ONE (13:18)
[2020-04-29] MEDS ORDERED: SCOPOLAMINE PATCH TOP ONE (13:19)
[2020-04-29] MEDS ORDERED: LIDO GARGLE 30 ML BOTTLE ONE (13:35)
[2020-04-29] MEDS ORDERED: LIDO GARGLE 30 ML BOTTLE TOP ONE ×2 (13:49→14:07)
[2020-04-29] MEDS ORDERED: BENZOCAINE/TETRACAINE/BUTAMBEN 20 GM TOP ONE ×2 (13:50→14:07)
[2020-04-29] MEDS ORDERED: fentaNYL 250 MCG/5 ML VIAL ONE (14:07)
[2020-04-29] MEDS ORDERED: MIDAZOLAM 2 MG/2 ML VIAL ONE ×4 (14:07→14:50)
[2020-04-29 15:19] VITALS: BP 127/79
== END 2020-04-29 12:33 | disposition home or self-care (01) ==
LOC: SDS 12:32
PROVIDERS: ATTEND Surgery
PROC: 0DB78ZX Excision of Stomach, Pylorus, Via Natural or Artificial Opening Endoscopic, Diagnostic (ICD-10-PCS; 2020-04-29)
PROC: 0DB58ZX Excision of Esophagus, Via Natural or Artificial Opening Endoscopic, Diagnostic (ICD-10-PCS; 2020-04-29)
PROC: 0DJD8ZZ Inspection of Lower Intestinal Tract, Via Natural or Artificial Opening Endoscopic (ICD-10-PCS; principal; 2020-04-29 13:30)
PROC: 0DB98ZX Excision of Duodenum, Via Natural or Artificial Opening Endoscopic, Diagnostic (ICD-10-PCS; 2020-04-29 13:30)
DX: K62.5 Hemorrhage of anus and rectum (principal); R10.9 Unspecified abdominal pain; K64.8 Other hemorrhoids; K64.4 Residual hemorrhoidal skin tags; K57.30 Diverticulosis of large intestine without perforation or abscess without bleeding; K21.9 Gastro-esophageal reflux disease without esophagitis; K29.70 Gastritis, unspecified, without bleeding; R14.0 Abdominal distension (gaseous); E11.9 Type 2 diabetes mellitus without complications; Z79.84 Long term (current) use of oral hypoglycemic drugs; F17.210 Nicotine dependence, cigarettes, uncomplicated
CPT/HCPCS: 43239; 45378; 83630; 87015; 87177; 87209; 87272; 87329; 87493; A9270; J3010; J3490; J7120

== ENCOUNTER 2020-10-15 08:00 | Outpatient (CLI) | payer MEDICAID | END 2020-10-15 23:59 | disposition home or self-care (01) | LOC: LAB.N 08:00 | PROVIDERS: ATTEND Physician Assistant Medical | DX: R05 Cough (principal); Z20.822 Contact with and (suspected) exposure to COVID-19 ==

== ENCOUNTER 2020-10-20 08:00 | Outpatient (CLI) | payer MEDICAID ==
[2020-10-20 12:07] LABS: BASOPHILS # (AUTO) 0.1 10^3/uL (0.0-0.1); BASOPHILS % (AUTO) 0.7 %; EOSINOPHILS # (AUTO) 0.5 10^3/uL (0.0-0.7); EOSINOPHILS % (AUTO) 4.4 %; HCT - HEMATOCRIT 34.7 % (37.0-47.0); HGB - HEMOGLOBIN 10.8 g/dL (12.0-16.0); LYMPHOCYTES # (AUTO) 2.3 10^3/uL (1.5-3.5); LYMPHOCYTES % (AUTO) 19.2 %; MEAN CORPUSCULAR HEMOGLOBIN 27.9 pg (27.0-31.0); MEAN CORPUSCULAR HGB CONC 31.1 g/dL (32.0-36.0); MEAN CORPUSCULAR VOLUME 89.7 fL (81.0-99.0); MEAN PLATELET VOLUME 9.2 fL (7.9-10.8); MONOCYTES # (AUTO) 0.6 10^3/uL (0.0-1.0); NEUTROPHILS # (AUTO) 8.3 10^3/uL (1.5-6.6); NEUTROPHILS % (AUTO) 70.2 %; PLT - PLATELET COUNT 634 10^3/uL (130-450); RED BLOOD COUNT 3.87 10^6/uL (4.20-5.40); RED CELL DISTRIBUTION WIDTH 16.9 % (12.0-15.0); WHITE BLOOD COUNT 11.8 x10^3/uL (4.8-10.8)
[2020-10-20 12:20] LABS: ALBUMIN 3.3 g/dL (3.2-5.5); ALBUMIN/GLOBULIN RATIO 0.8 (1.0-2.2); BILIRUBIN,TOTAL 0.4 mg/dL (0.2-1.0); CALCIUM 9.4 mg/dL (8.5-10.3); CREATININE 1.1 mg/dL (0.4-1.0); POTASSIUM 3.9 mmol/L (3.5-5.0); TOTAL PROTEIN 7.5 g/dL (6.7-8.2)
[2020-10-20 12:36] LABS: THYROID STIMULATING HORMONE 1.64 uIU/mL (0.34-5.60)
[2020-10-20 13:05] LABS: ESTIMATED AVERAGE GLUCOSE 128 mg/dL (70-100); HEMOGLOBIN A1c% 6.1 % (4.27-6.07)
== END 2020-10-20 23:59 | disposition home or self-care (01) ==
LOC: LAB.WCP 08:00
PROVIDERS: ATTEND Family Medicine
DX: E11.9 Type 2 diabetes mellitus without complications (principal); I10 Essential (primary) hypertension; E03.9 Hypothyroidism, unspecified
CPT/HCPCS: 36415; 80053; 83036; 84443; 85025

== ENCOUNTER 2020-12-27 13:38 | Outpatient (CLI) | payer MEDICAID ==
--- NOTE | 2020-12-27 15:55 | XRAY Report ---
PROCEDURE: Lumbar Spine 2 View INDICATIONS: CHRONIC LOW BACK PX TECHNIQUE: 3 views of the lumbar spine were acquired. COMPARISON: None. FINDINGS: L-SPINE: No acute displaced fracture or malalignment. The vertebral body heights are maintained. Mod erate disc height loss with facet arthrosis at L5-S1. The sacroiliac joints appear patent. SOFT TISSUES: No focal abnormality. Calcified atheromatous change of the aorta. Bilateral iliac stents are noted. IMPRESSION: 1.No acute osseous abnormality of the lumbar spine. Reviewed by: Shane Rodriguez MD on 12/27/2020 3:53 PM [facility] Approved by: Shane Rodriguez MD on 12/27/2020 3:53 PM [facility] Station ID: [id number]
== END 2020-12-27 13:39 | disposition home or self-care (01) ==
LOC: DI.N 13:38
PROVIDERS: ATTEND Family Medicine
DX: M54.59 Other low back pain (principal)

== ENCOUNTER 2021-01-12 15:06 | Outpatient (CLI) | payer MEDICAID | END 2021-01-12 15:07 | disposition home or self-care (01) | LOC: LAB.N 15:06 | PROVIDERS: ATTEND Physician Assistant | DX: R05.9 Cough, unspecified (principal); Z20.822 Contact with and (suspected) exposure to COVID-19 ==

== ENCOUNTER 2021-03-01 08:00 | Outpatient (CLI) | payer MEDICAID | END 2021-03-01 23:59 | disposition home or self-care (01) | LOC: LAB.N 08:00 | PROVIDERS: ATTEND Nurse Practitioner | DX: R05.9 Cough, unspecified (principal); R52 Pain, unspecified; Z20.822 Contact with and (suspected) exposure to COVID-19 ==

== ENCOUNTER 2021-03-16 09:25 | Emergency (ER) | payer MEDICAID ==
--- NOTE | 2021-03-16 09:43 | ED Physician Documentation ---
PD HPI URI - Stated complaint Stated Complaint: COUGH - Chief complaint Chief Complaint: Resp - History obtained from History obtained from: Patient - History of Present Illness Timing - onset: How many months ago (2) Timing duration: Months (2) Timing details: Abrupt onset, Still present Associated symptoms: Chills, Productive cough. No: Fever, Swollen nodes, Chest pain, Dyspnea Contributing factors: No: Sick contact, Travel, Unimmunized Similar symptoms before: Has not had sx before Recently seen: Clinic (initially a month ago and was Dx viral illness. Seen again 7-8 days ago and Rx albuterol inhaler and Zpack, without improvement.) Review of Systems Constitutional: reports: Chills, Myalgias. denies: Fever Nose: reports: Congestion. denies: Rhinorrhea / runny nose Throat: denies: Sore throat Cardiac: denies: Chest pain / pressure, Palpitations Respiratory: reports: Cough, Wheezing GI: denies: Abdominal Pain, Nausea, Vomiting Skin: denies: Rash, Lesions Neurologic: denies: Altered mental status, Headache PD PAST MEDICAL HISTORY - Past Medical History Past Medical History: Yes Cardiovascular: Hypertension, High cholesterol, Peripheral Vascular Disease Respiratory: None Neuro: None Endocrine/Autoimmune: Type 2 diabetes, HyPOthyroidism GI: GERD RN NEONATAL: None : Nocturia HEENT: Chronic vision loss Psych: Depression Musculoskeletal: Osteoarthritis Derm: None - Past Surgical History Past Surgical History: No General: Cholecystectomy, Other Ortho: Other /RN NEONATAL: Hysterectomy, Other - Present Medications Home Medications: Ambulatory Orders Medication Instructions Recorded Confirmed Amlodipine Besylate [Norvasc] 10 mg PO DAILY 04/20/20 03/16/21 Atorvastatin Calcium 40 mg PO DAILY 04/20/20 03/16/21 Levothyroxine Sodium [Levoxyl] 200 mcg PO DAILY 04/20/20 03/16/21 Ticagrelor [Brilinta] 90 mg PO DAILY 04/20/20 03/16/21 metFORMIN [Glucophage] 500 mg PO DAILY 04/20/20 03/16/21 Albuterol Sulf [Ventolin Hfa 2 - 3 puffs INH QID 14 Days #1 03/16/21 Inhaler] inhaler Benzonatate [Tessalon] 100 mg PO TID PRN #20 cap 03/16/21 Doxycycline Hyclate 100 mg PO BID 7 Days #14 cap 03/16/21 Metoprolol Tartrate [Lopressor] 25 mg PO BID 03/16/21 03/16/21 Rivaroxaban [Xarelto] 2.5 mg PO DAILY 03/16/21 03/16/21 dexAMETHasone [Decadron] 4 mg PO DAILY #5 tablet 03/16/21 - Allergies Allergies/Adverse Reactions: Allergies Allergy/AdvReac Type Severity Reaction Status Date / Time oxycodone [From OxyContin] AdvReac Itching Verified 03/16/21 09:29 - Social History Does the pt smoke?: Yes Smoking Status: Current every day smoker Does the pt drink ETOH?: No Does the pt have substance abuse?: No - Immunizations Immunizations are current?: Yes PD ED PE NORMAL - Vitals Vital signs reviewed: Yes - General General: Alert and oriented X 3, No acute distress, Well developed/nourished - HEENT HEENT: Ears normal, Moist mucous membranes, Pharynx benign - Neck Neck: Supple, no meningeal sign, No adenopathy - Cardiac Cardiac: RRR, No murmur - Respiratory Respiratory: No respiratory distress. No: Clear bilaterally (wheezing difusely and mild coarse sounds right side perihilar. ) - Abdomen Abdomen: Soft, Non tender - Extremities Extremities: Normal ROM s pain, No edema, No calf tenderness / cord - Neuro Neuro: Alert and oriented X 3, No motor deficit, Normal speech Results - Vitals Vitals: Oxygen O2 Source Room air - Rads (name of study) chest xray Radiology: Prelim report reviewed (right perihilar infiltrates), See rad report PD MEDICAL DECISION MAKING - ED course Complexity details: reviewed results, re-evaluated patient (does feel better with inhaler using spacer. ), considered differential, d/w patient Departure - Departure Disposition: 01 Home, Self Care Clinical Impression: Persistent pneumonia Dyspnea Qualifiers: Dyspnea type: shortness of breath Qualified Code(s): R06.02 - Shortness of breath Hypertension Qualifiers: Hypertension type: primary hypertension Qualified Code(s): I10 - Essential (primary) hypertension Condition: Stable Record reviewed to determine appropriate education?: Yes Instructions: ED Pneumonia Adult Follow-Up: Cecy Vargas DO [Primary Care Provider] - Prescriptions: dexAMETHasone [Decadron] 4 mg PO DAILY #5 tablet Doxycycline Hyclate 100 mg PO BID 7 Days #14 cap Benzonatate [Tessalon] 100 mg PO TID PRN #20 cap PRN Reason: Cough Albuterol Sulf [Ventolin Hfa Inhaler] 2 - 3 puffs INH QID 14 Days #1 inhaler Comments: Continue usual medications. Use the albuterol inhaler 2 to 3 puffs with the spacer 4 times daily for the next 7 to 10 days. Use it more often if needed as well for wheezing and shortness of breath. Add doxycycline antibiotic twice daily for a week as well as Decadron steroid for inflammation of the airways daily for 5 days. Stay well-hydrated. Low-salt diet. Add Tessalon/benzonatate every 6 hours if needed for cough. You could still use [id number] cough medicine if it helps. I would anticipate improvement generally over the next several days to week. You may still have some persistent mild cough and wheezing for several more weeks, but you should feel well. I transmitted the prescriptions to [facility] pharmacy. Discharge Date/Time: 03/16/21 10:46
[2021-03-16] MEDS: BENZONATATE 100 MG CAPSULE PO STA (10:10)
[2021-03-16] MEDS: CHERRY SYRUP 10 ML UDC PO ONE (10:11)
[2021-03-16] MEDS: DEXAMETHASONE 10 MG/ML VIAL PO STA (10:11)
[2021-03-16 10:12] VITALS: BP 200/104
[2021-03-16] MEDS: ALBUTEROL 1 PUFF INH STA (10:18)
--- NOTE | 2021-03-16 10:27 | XRAY Report ---
PROCEDURE: Chest 1 View X-Ray INDICATIONS: cough/dyspnea for weeks TECHNIQUE: One view of the chest was acquired. COMPARISON: 10/31/2018. FINDINGS: Surgical changes and devices: None. Lungs and pleura: There is increased pulmonary vascular prominence suggestive of pulmonary edema. Th ere are indistinct right perihilar opacities. No pleural effusions or pneumothorax. Mediastinum: Mediastinal contours appear normal. Heart size is normal. Bones and chest wall: No suspicious bony lesions. Overlying soft tissues appear unremarkable. IMPRESSION: 1. Indistinct right perihilar opacities are nonspecific but suggestive of pneumonia given clinical hi story. 2. Pulmonary vascular prominence suggestive of pulmonary edema which may be due to cardiogenic or non cardiogenic etiologies such as atypical pneumonia. Reviewed by: Paxton Bull MD on 03/16/2021 10:25 AM [facility] Approved by: Paxton Bull MD on 03/16/2021 10:25 AM [facility] Station ID: [id number]
[2021-03-16] MEDS: DOXYCYCLINE 100 MG TABLET PO STA (10:36)
== END 2021-03-16 10:46 | disposition home or self-care (01) ==
LOC: ED 09:25
DX: F17.200 Nicotine dependence, unspecified, uncomplicated (principal); J18.9 Pneumonia, unspecified organism; I10 Essential (primary) hypertension
CPT/HCPCS: 71045; 94640; 99283; A9270

== ENCOUNTER 2021-06-02 15:20 | Outpatient (CLI) | payer MEDICAID ==
[2021-06-02 18:54] LABS: BASOPHILS # (AUTO) 0.1 10^3/uL (0.0-0.1); BASOPHILS % (AUTO) 0.7 %; EOSINOPHILS # (AUTO) 0.3 10^3/uL (0.0-0.7); EOSINOPHILS % (AUTO) 4.2 %; HCT - HEMATOCRIT 34.1 % (37.0-47.0); HGB - HEMOGLOBIN 10.6 g/dL (12.0-16.0); LYMPHOCYTES # (AUTO) 2.7 10^3/uL (1.5-3.5); LYMPHOCYTES % (AUTO) 36.9 %; MEAN CORPUSCULAR HEMOGLOBIN 25.5 pg (27.0-31.0); MEAN CORPUSCULAR HGB CONC 31.1 g/dL (32.0-36.0); MONOCYTES # (AUTO) 0.4 10^3/uL (0.0-1.0); MONOCYTES % (AUTO) 5.6 %; NEUTROPHILS # (AUTO) 3.8 10^3/uL (1.5-6.6); NEUTROPHILS % (AUTO) 52.3 %; PLT - PLATELET COUNT 240 10^3/uL (130-450); RED BLOOD COUNT 4.16 10^6/uL (4.20-5.40); WHITE BLOOD COUNT 7.2 x10^3/uL (4.8-10.8)
[2021-06-02 19:31] LABS: ALBUMIN 3.4 g/dL (3.2-5.5); ALKALINE PHOSPHATASE 104 IU/L (42-121); ALT ALANINE AMINOTRANSFERASE 14 IU/L (10-60); AST ASPARTATE AMINOTRANSFERASE 21 IU/L (10-42); BILIRUBIN,TOTAL 0.2 mg/dL (0.2-1.0); BUN - BLOOD UREA NITROGEN 11 mg/dL (6-20); CALCIUM 8.3 mg/dL (8.5-10.3); CARBON DIOXIDE - CO2 25 mmol/L (21-32); CHLORIDE 105 mmol/L (101-111); CHOL/HDL RATIO 10.1 (<4.4); CHOLESTEROL 213 mg/dL; GFR - MDRD 58 (>89); GLUCOSE 139 mg/dL (70-100); HDL CHOLESTEROL 21 mg/dL; LDL CHOLESTEROL,CALCULATED 130 mg/dL; LDL/HDL RATIO 6.2 (<4.4); POTASSIUM 3.5 mmol/L (3.5-5.0); SODIUM 140 mmol/L (135-145); TOTAL PROTEIN 6.9 g/dL (6.7-8.2); TRIGLYCERIDES 310 mg/dL; VLDL CHOLESTEROL 62 mg/dL
== END 2021-06-02 15:21 | disposition home or self-care (01) ==
LOC: LAB.N 15:20
PROVIDERS: ATTEND Family Medicine
DX: U07.1 COVID-19 (principal); E11.9 Type 2 diabetes mellitus without complications
CPT/HCPCS: 36415; 80053; 80061; 81599; 83036; 83721; 85025

== ENCOUNTER 2021-06-02 15:24 | Outpatient (CLI) | payer MEDICAID ==
--- NOTE | 2021-06-02 16:47 | XRAY Report ---
PROCEDURE: Chest 2 View X-Ray INDICATIONS: COUGH TECHNIQUE: 2 view(s) of the chest. COMPARISON: 03/16/2021 FINDINGS: Surgical changes and devices: None. Lungs and pleura: No pleural effusions or pneumothorax. Minor diffuse interstitial thickening, simil ar compared to prior. Mediastinum: Mediastinal contours are normal. No significant central vascular congestion. Heart siz e is normal. Bones and chest wall: No suspicious bony abnormalities. Soft tissues appear unremarkable. IMPRESSION: Mild, chronic diffuse interstitial thickening may be related to chronic edema or other i nterstitial lung disease. No acute process. Reviewed by: Aliya Sehriff MD on 06/02/2021 4:45 PM PDT Approved by: Aliya Sheriff MD on 06/02/2021 4:45 PM PDT Station ID: [id number]
== END 2021-06-02 15:25 | disposition home or self-care (01) ==
LOC: DI.N 15:24
PROVIDERS: ATTEND Family Medicine
DX: R05.9 Cough, unspecified (principal); R91.8 Other nonspecific abnormal finding of lung field

== ENCOUNTER 2021-10-19 12:05 | Outpatient (CLI) | payer MEDICAID ==
[2021-10-19 18:16] LABS: ALBUMIN 3.7 g/dL (3.2-5.5); ALKALINE PHOSPHATASE 157 IU/L (42-121); ALT ALANINE AMINOTRANSFERASE 26 IU/L (10-60); AST ASPARTATE AMINOTRANSFERASE 19 IU/L (10-42); BILIRUBIN,TOTAL 0.4 mg/dL (0.2-1.0); BUN - BLOOD UREA NITROGEN 15 mg/dL (6-20); CALCIUM 9.3 mg/dL (8.5-10.3); CARBON DIOXIDE - CO2 25 mmol/L (21-32); CHLORIDE 102 mmol/L (101-111); CHOL/HDL RATIO 7.5 (<4.4); CHOLESTEROL 246 mg/dL; CREATININE 1.1 mg/dL (0.4-1.0); GFR - MDRD 52 (>89); GLUCOSE 193 mg/dL (70-100); HDL CHOLESTEROL 33 mg/dL; LDL CHOLESTEROL,CALCULATED 137 mg/dL; LDL/HDL RATIO 4.2 (<4.4); LIPASE 39 U/L (22-51); POTASSIUM 3.5 mmol/L (3.5-5.0); SODIUM 136 mmol/L (135-145); TOTAL PROTEIN 7.3 g/dL (6.7-8.2); TRIGLYCERIDES 378 mg/dL; VLDL CHOLESTEROL 76 mg/dL
== END 2021-10-19 12:06 | disposition home or self-care (01) ==
LOC: LAB.N 12:05
PROVIDERS: ATTEND Nurse Practitioner Family
DX: E78.5 Hyperlipidemia, unspecified (principal); K86.1 Other chronic pancreatitis; R10.13 Epigastric pain
CPT/HCPCS: 36415; 80053; 80061; 83690; 83721

== ENCOUNTER 2021-11-09 13:22 | Outpatient (CLI) | payer MEDICAID ==
[2021-11-09 18:23] LABS: ALBUMIN 3.8 g/dL (3.2-5.5); ALKALINE PHOSPHATASE 148 IU/L (42-121); ALT ALANINE AMINOTRANSFERASE 14 IU/L (10-60); AST ASPARTATE AMINOTRANSFERASE 17 IU/L (10-42); BILIRUBIN,TOTAL 0.3 mg/dL (0.2-1.0); BUN - BLOOD UREA NITROGEN 14 mg/dL (6-20); CALCIUM 9.7 mg/dL (8.5-10.3); CARBON DIOXIDE - CO2 28 mmol/L (21-32); CHLORIDE 98 mmol/L (101-111); CHOL/HDL RATIO 4.7 (<4.4); CHOLESTEROL 145 mg/dL; GFR - MDRD 58 (>89); GLUCOSE 148 mg/dL (70-100); HDL CHOLESTEROL 31 mg/dL; LDL CHOLESTEROL,CALCULATED 76 mg/dL; LDL/HDL RATIO 2.5 (<4.4); POTASSIUM 2.9 mmol/L (3.5-5.0); SODIUM 137 mmol/L (135-145); TOTAL PROTEIN 7.5 g/dL (6.7-8.2); TRIGLYCERIDES 192 mg/dL; VLDL CHOLESTEROL 38 mg/dL
== END 2021-11-09 13:23 | disposition home or self-care (01) ==
LOC: LAB.N 13:22
PROVIDERS: ATTEND Nurse Practitioner Family
DX: E78.49 Other hyperlipidemia (principal); E11.9 Type 2 diabetes mellitus without complications
CPT/HCPCS: 36415; 80053; 80061; 83721

== ENCOUNTER 2021-11-14 08:10 | Outpatient (CLI) | payer MEDICAID ==
--- NOTE | 2021-11-14 12:01 | Ultrasound Report ---
PROCEDURE: Abdomen Limited INDICATIONS: EPIGASTRIC ABD PAIN TECHNIQUE: Real-time focused scanning was performed of the abdomen, with image documentation. COMPARISON: 01/03/2020 CT angiogram of the abdomen and pelvis FINDINGS: Diffusely increased hepatic parenchymal echogenicity. No focal hepatic mass. No intrahepat ic or extrahepatic biliary ductal dilatation. Cholecystectomy. Pancreas and right kidney unremarkable . IMPRESSION: Diffuse moderate to severe hepatic cirrhosis. Cholecystectomy. Reviewed by: Robert Trejo MD on 11/14/2021 11:59 AM PDT Approved by: Robert Trejo MD on 11/14/2021 11:59 AM PDT Station ID: [id number]
== END 2021-11-14 08:11 | disposition home or self-care (01) ==
LOC: DI 08:10
PROVIDERS: ATTEND Nurse Practitioner Family
DX: K74.60 Unspecified cirrhosis of liver (principal); Z90.49 Acquired absence of other specified parts of digestive tract; R10.13 Epigastric pain

== ENCOUNTER 2022-01-16 10:04 | Outpatient (CLI) | payer MEDICAID ==
[2022-01-16 12:45] LABS: BASOPHILS # (AUTO) 0.1 10^3/uL (0.0-0.1); BASOPHILS % (AUTO) 0.8 %; EOSINOPHILS # (AUTO) 0.5 10^3/uL (0.0-0.7); EOSINOPHILS % (AUTO) 5.4 %; HCT - HEMATOCRIT 42.7 % (37.0-47.0); LYMPHOCYTES # (AUTO) 2.3 10^3/uL (1.5-3.5); LYMPHOCYTES % (AUTO) 25.9 %; MEAN CORPUSCULAR HEMOGLOBIN 28.9 pg (27.0-31.0); MEAN CORPUSCULAR HGB CONC 32.8 g/dL (32.0-36.0); MEAN PLATELET VOLUME 9.6 fL (7.9-10.8); MONOCYTES # (AUTO) 0.7 10^3/uL (0.0-1.0); MONOCYTES % (AUTO) 7.5 %; NEUTROPHILS # (AUTO) 5.3 10^3/uL (1.5-6.6); NEUTROPHILS % (AUTO) 59.9 %; PLT - PLATELET COUNT 311 10^3/uL (130-450); RED BLOOD COUNT 4.85 10^6/uL (4.20-5.40); RED CELL DISTRIBUTION WIDTH 17.1 % (12.0-15.0); WHITE BLOOD COUNT 8.8 x10^3/uL (4.8-10.8)
[2022-01-16 13:01] LABS: ALBUMIN/GLOBULIN RATIO 1.1 (1.0-2.2); BILIRUBIN,TOTAL 0.3 mg/dL (0.2-1.0); CALCIUM 9.1 mg/dL (8.5-10.3); CREATININE 1.2 mg/dL (0.4-1.0); POTASSIUM 3.4 mmol/L (3.5-5.0); TOTAL PROTEIN 7.7 g/dL (6.7-8.2)
== END 2022-01-16 10:05 | disposition home or self-care (01) ==
LOC: LAB.N 10:04
PROVIDERS: ATTEND Nurse Practitioner Family
DX: J01.90 Acute sinusitis, unspecified (principal); R53.83 Other fatigue
CPT/HCPCS: 36415; 80053; 85025

== ENCOUNTER 2022-01-26 15:58 | Outpatient (CLI) | payer OTHER, MEDICAID | END 2022-01-26 15:59 | disposition critical access hospital (66) | LOC: EMS 15:58 | DX: M54.9 Dorsalgia, unspecified (principal); R51.9 Headache, unspecified; V43.53XA Car driver injured in collision with pick-up truck in traffic accident, initial encounter; Y92.413 State road as the place of occurrence of the external cause; Z79.01 Long term (current) use of anticoagulants | CPT/HCPCS: A0425; A0429 ==

== ENCOUNTER 2022-03-22 14:28 | Outpatient (CLI) | payer MEDICAID ==
--- NOTE | 2022-03-22 19:38 | DEXA Report ---
PROCEDURE: Dexa Spine and/or Hip INDICATIONS: POSTMENOPAUSAL TECHNIQUE: Dual energy x-ray absorptiometry (DXA) was performed on a [facility]. Regions measur ed are the AP Spine, femoral neck, and if needed forearm. COMPARISON: 11/11/2019 FINDINGS: Lumbar Spine: Bone Mineral Density 0.965 g/cm/cm,T score -1.8, previously -2.1 Left Femoral Neck: Bone Mineral Density 0.931 g/cm/cm, T score -0.8, previously -0.7 Left Hip: Bone Mineral Density 0.960 g/cm/cm,T score -0.4, previously -0.1 (T score greater or equal to -1.0: NORMAL) (T score from -1.1 to -2.4: OSTEOPENIA) (T score less than or equal to -2.5 to: OSTEOPOROSIS) Impression: Lumbar spine osteopenia, improved from the prior Normal left hip and femoral neck bone mineral density, slightly less dense than prior study Patients with diagnosis of osteoporosis or osteopenia should have regular bone mineral density assess ment. For those eligible for Medicare, routine testing is allowed once every 2 years. Testing frequ ency can be increased for patients who have rapidly progressing disease or for those who are receivin g medical therapy to restore bone mass. Reviewed by: Onesimo Tanner MD on 03/22/2022 6:36 PM [facility] Approved by: Onesimo Tanner MD on 03/22/2022 6:36 PM [facility] Station ID: [id number]
== END 2022-03-22 14:29 | disposition home or self-care (01) ==
LOC: DI 14:28
PROVIDERS: ATTEND Nurse Practitioner Family
DX: Z78.0 Asymptomatic menopausal state (principal); M85.88 Other specified disorders of bone density and structure, other site

== ENCOUNTER 2022-07-06 14:47 | Outpatient (CLI) | payer MEDICAID ==
--- NOTE | 2022-07-06 16:33 | CT Report ---
PROCEDURE: Low Dose Lung Cancer Screen INDICATIONS: LUNG NODULE TECHNIQUE: Noncontrast low-dose axial images were acquired from the pulmonary apices to the posterior costophren ic angles. Multiplanar MIP reformats were then reconstructed. For radiation dose reduction, the follo wing was used: automated exposure control, adjustment of mA and/or kV according to patient size. COMPARISON: None. FINDINGS: Image quality: Excellent. Prior cancer history: No. Lungs and pleura: No pleural effusions. No pneumothorax. Multiple solid pulmonary nodules, measuring no greater than 5 mm. Examples include: -4.3 mm solid nodule, right upper lobe (series 4, image 87). -5 mm solid nodule, right upper lobe (series 4, image 65). -3 mm solid nodule, left upper lobe (series 4, image 83). -3 mm solid nodule, anterior right upper lobe (series 4, image 118). - 3.6 m solid nodule, right lower lobe (series 4, image 159). Mediastinum: Heart size is normal. No pericardial effusions. No mediastinal adenopathy by size criter ia. No large vessel abnormality. Three vessel coronary artery calcifications. Fat-containing lesion i n the anterior mediastinum, presumably residual thymus. Chest wall and lower neck: Thyroid is unremarkable. No axillary or supraclavicular adenopathy by size . Bones: No aggressive osseous abnormality. Low bone mineralization. Upper Abdomen: Unremarkable. IMPRESSION: Lung RAD: 2 - Benign. Recommendation: Continue annual screening in 12 Months with LDCT Non-Lung Significant Findings: Coronary Arterial Calcification - Moderate or Severe. Recommend cardio logy referral. Low bone mineralization, consider DEXA. Reviewed by: Torrey Arshad on 07/06/2022 3:32 PM [facility] Approved by: Torrey Arshad on 07/06/2022 3:32 PM [facility] Station ID: [id number]
== END 2022-07-06 14:48 | disposition home or self-care (01) ==
LOC: DI 14:47
PROVIDERS: ATTEND Nurse Practitioner Family
DX: Z12.2 Encounter for screening for malignant neoplasm of respiratory organs (principal); R91.8 Other nonspecific abnormal finding of lung field; I25.10 Atherosclerotic heart disease of native coronary artery without angina pectoris; M85.9 Disorder of bone density and structure, unspecified

== ENCOUNTER 2022-07-06 14:47 | Outpatient (CLI) | payer MEDICAID ==
--- NOTE | 2022-07-06 17:25 | Ultrasound Report ---
PROCEDURE: Carotid Doppler Complete INDICATIONS: DIZZINESS TECHNIQUE: Color and pulse Doppler interrogation was performed of both carotid systems, with image documentation and velocity measurements. COMPARISON: None. FINDINGS: Right side: Brachial blood pressure: 100/71 mm Hg. Common carotid artery peak systolic velocity: 65 cm/sec. Internal carotid artery peak systolic velocity: 77 cm/sec. Internal carotid artery end diastolic velocity: 28 cm/sec. External carotid artery peak systolic velocity: 159 cm/sec. ICA/CCA peak systolic ratio: 1.2 . Erwin scale imaging description: Atheromatous plaque is present at the carotid bifurcation. Percent internal carotid artery stenosis: Less than 50 percent stenosis. Vertebral artery: Flow direction is antegrade. Left side: Brachial blood pressure: 106/61 mm Hg. Common carotid artery peak systolic velocity: 68 cm/sec. Internal carotid artery peak systolic velocity: 67 cm/sec. Internal carotid artery end diastolic velocity: 27 cm/sec. External carotid artery peak systolic velocity: 303 cm/sec. ICA/CCA peak systolic ratio: 0.99 . Erwin scale imaging description: Atheromatous plaque is present at the carotid bifurcation Percent internal carotid artery stenosis: Less than 50 percent stenosis. Vertebral artery: Flow direction is antegrade. IMPRESSION: Less than 50% stenosis of the bilateral internal carotid arteries. The estimate of stenosis included in the report of the imaging study was calculated using the [facility]-end orsed standards of carotid artery stenosis. Reviewed by: Tabitha Davis MD on 07/06/2022 5:23 PM PDT Approved by: Tabitha Davis MD on 07/06/2022 5:23 PM PDT Station ID: [id number]
== END 2022-07-06 14:48 | disposition home or self-care (01) ==
LOC: DI 14:47
PROVIDERS: ATTEND Nurse Practitioner Family
DX: R42 Dizziness and giddiness (principal); E78.5 Hyperlipidemia, unspecified; I73.9 Peripheral vascular disease, unspecified; I10 Essential (primary) hypertension; I65.23 Occlusion and stenosis of bilateral carotid arteries; Z12.2 Encounter for screening for malignant neoplasm of respiratory organs; R91.8 Other nonspecific abnormal finding of lung field; I25.10 Atherosclerotic heart disease of native coronary artery without angina pectoris; M85.9 Disorder of bone density and structure, unspecified
CPT/HCPCS: 93880

== ENCOUNTER 2022-08-01 11:31 | Outpatient (CLI) | payer MEDICAID ==
[2022-08-01 18:02] LABS: BASOPHILS % (AUTO) 0.5 %; EOSINOPHILS # (AUTO) 0.4 10^3/uL (0.0-0.7); EOSINOPHILS % (AUTO) 4.2 %; HCT - HEMATOCRIT 38.5 % (37.0-47.0); HGB - HEMOGLOBIN 12.3 g/dL (12.0-16.0); LYMPHOCYTES # (AUTO) 2.6 10^3/uL (1.5-3.5); LYMPHOCYTES % (AUTO) 29.8 %; MEAN CORPUSCULAR HEMOGLOBIN 27.1 pg (27.0-31.0); MEAN CORPUSCULAR HGB CONC 31.9 g/dL (32.0-36.0); MEAN CORPUSCULAR VOLUME 84.8 fL (81.0-99.0); MEAN PLATELET VOLUME 9.7 fL (7.9-10.8); MONOCYTES # (AUTO) 0.7 10^3/uL (0.0-1.0); MONOCYTES % (AUTO) 8.2 %; NEUTROPHILS % (AUTO) 57.1 %; PLT - PLATELET COUNT 315 10^3/uL (130-450); RED BLOOD COUNT 4.54 10^6/uL (4.20-5.40); RED CELL DISTRIBUTION WIDTH 16.7 % (12.0-15.0); WHITE BLOOD COUNT 8.8 x10^3/uL (4.8-10.8)
[2022-08-01 18:17] LABS: THYROID STIMULATING HORMONE 0.01 uIU/mL (0.34-5.60)
[2022-08-01 18:48] LABS: FREE T4 (FREE THYROXINE) 2.34 ng/dL (0.58-1.64)
[2022-08-01 20:41] LABS: ALBUMIN 3.8 g/dL (3.2-5.5); ALKALINE PHOSPHATASE 110 IU/L (42-121); ALT ALANINE AMINOTRANSFERASE 21 IU/L (10-60); AST ASPARTATE AMINOTRANSFERASE 20 IU/L (10-42); BILIRUBIN,TOTAL 0.2 mg/dL (0.2-1.0); BUN - BLOOD UREA NITROGEN 20 mg/dL (6-20); CALCIUM 9.4 mg/dL (8.5-10.3); CARBON DIOXIDE - CO2 27 mmol/L (21-32); CHLORIDE 102 mmol/L (101-111); CHOL/HDL RATIO 3.3 (<4.4); CHOLESTEROL 127 mg/dL; GFR - MDRD 57 (>89); GLUCOSE 133 mg/dL (70-100); HDL CHOLESTEROL 38 mg/dL; LDL CHOLESTEROL,CALCULATED 43 mg/dL; LDL/HDL RATIO 1.1 (<4.4); POTASSIUM 3.4 mmol/L (3.5-5.0); SODIUM 139 mmol/L (135-145); TOTAL PROTEIN 7.6 g/dL (6.7-8.2); TRIGLYCERIDES 230 mg/dL; VLDL CHOLESTEROL 46 mg/dL
[2022-08-01 21:01] LABS: ESTIMATED AVERAGE GLUCOSE 137 mg/dL (70-100); HEMOGLOBIN A1c% 6.4 % (4.27-6.07)
== END 2022-08-01 11:32 | disposition home or self-care (01) ==
LOC: LAB.N 11:31
PROVIDERS: ATTEND Nurse Practitioner Family
DX: I10 Essential (primary) hypertension (principal); I25.10 Atherosclerotic heart disease of native coronary artery without angina pectoris; R42 Dizziness and giddiness; E87.6 Hypokalemia; E78.5 Hyperlipidemia, unspecified; E89.0 Postprocedural hypothyroidism
CPT/HCPCS: 36415; 80053; 80061; 83036; 83721; 84439; 84443; 85025

== ENCOUNTER 2022-08-13 12:00 | Outpatient (CLI) | payer MEDICAID | END 2022-08-13 23:59 | disposition short-term general hospital (02) | LOC: EMS 12:00 | DX: M79.672 Pain in left foot (principal); R23.8 Other skin changes; E11.51 Type 2 diabetes mellitus with diabetic peripheral angiopathy without gangrene; E11.40 Type 2 diabetes mellitus with diabetic neuropathy, unspecified; R11.0 Nausea; E11.649 Type 2 diabetes mellitus with hypoglycemia without coma | CPT/HCPCS: A0425; A0427; A0999 ==

== ENCOUNTER 2022-09-25 10:43 | Outpatient (CLI) | payer MEDICAID ==
[2022-09-25 17:44] LABS: BASOPHILS # (AUTO) 0.1 10^3/uL (0.0-0.1); BASOPHILS % (AUTO) 0.8 %; EOSINOPHILS # (AUTO) 0.6 10^3/uL (0.0-0.7); EOSINOPHILS % (AUTO) 6.3 %; HCT - HEMATOCRIT 29.8 % (37.0-47.0); HGB - HEMOGLOBIN 8.9 g/dL (12.0-16.0); LYMPHOCYTES # (AUTO) 2.4 10^3/uL (1.5-3.5); LYMPHOCYTES % (AUTO) 26.6 %; MEAN CORPUSCULAR HEMOGLOBIN 26.6 pg (27.0-31.0); MEAN CORPUSCULAR HGB CONC 29.9 g/dL (32.0-36.0); MEAN PLATELET VOLUME 8.9 fL (7.9-10.8); MONOCYTES # (AUTO) 0.9 10^3/uL (0.0-1.0); MONOCYTES % (AUTO) 9.6 %; NEUTROPHILS # (AUTO) 5.1 10^3/uL (1.5-6.6); NEUTROPHILS % (AUTO) 56.4 %; PLT - PLATELET COUNT 374 10^3/uL (130-450); RED BLOOD COUNT 3.35 10^6/uL (4.20-5.40); RED CELL DISTRIBUTION WIDTH 17.2 % (12.0-15.0)
[2022-09-25 18:32] LABS: ALBUMIN/GLOBULIN RATIO 1.2 (1.0-2.2); ALKALINE PHOSPHATASE 135 IU/L (42-121); ALT ALANINE AMINOTRANSFERASE 19 IU/L (10-60); AST ASPARTATE AMINOTRANSFERASE 16 IU/L (10-42); BILIRUBIN,TOTAL 0.2 mg/dL (0.2-1.0); BUN - BLOOD UREA NITROGEN 10 mg/dL (6-20); CALCIUM 9.7 mg/dL (8.5-10.3); CARBON DIOXIDE - CO2 25 mmol/L (21-32); CHLORIDE 109 mmol/L (101-111); CREATININE 0.9 mg/dL (0.6-1.3); GFR - MDRD 65 (>89); GLUCOSE 103 mg/dL (74-104); POTASSIUM 4.6 mmol/L (3.5-4.5); SODIUM 139 mmol/L (135-145); TOTAL PROTEIN 7.4 g/dL (6.4-8.9)
[2022-09-25 18:36] LABS: CHOLESTEROL 119 mg/dL; TRIGLYCERIDES 158 mg/dL (48-352); VLDL CHOLESTEROL 32 mg/dL
[2022-09-25 18:41] LABS: THYROID STIMULATING HORMONE < 0.01 uIU/mL (0.34-5.60)
[2022-09-25 19:10] LABS: CHOL/HDL RATIO 2.9 (<4.4); HDL CHOLESTEROL 41 mg/dL; LDL CHOLESTEROL,CALCULATED 46 mg/dL; LDL/HDL RATIO 1.1 (<4.4)
[2022-09-25 22:17] LABS: ESTIMATED AVERAGE GLUCOSE 131 mg/dL (70-100); HEMOGLOBIN A1c% 6.2 % (4.27-6.07)
== END 2022-09-25 10:44 | disposition home or self-care (01) ==
LOC: LAB.N 10:43
PROVIDERS: ATTEND Nurse Practitioner Family
DX: D64.9 Anemia, unspecified (principal); E87.6 Hypokalemia; E89.0 Postprocedural hypothyroidism; I10 Essential (primary) hypertension; I25.10 Atherosclerotic heart disease of native coronary artery without angina pectoris; E11.9 Type 2 diabetes mellitus without complications
CPT/HCPCS: 36415; 80053; 80061; 83036; 83721; 84439; 84443; 85025

== ENCOUNTER 2022-10-26 08:00 | Outpatient (CLI) | payer MEDICAID ==
[2022-10-26 12:56] LABS: INFLUENZA A- RESP PCR PANEL NOT DETECTED; INFLUENZA B - RESP PCR PANEL NOT DETECTED; RSV- RESP PCR PANEL NOT DETECTED; SARS-CoV-2 -RESP PCR PANEL NOT DETECTED
== END 2022-10-26 23:59 | disposition home or self-care (01) ==
LOC: LAB.N 08:00
PROVIDERS: ATTEND Nurse Practitioner Family
DX: R05.1 Acute cough (principal); Z20.822 Contact with and (suspected) exposure to COVID-19
CPT/HCPCS: 87637

== ENCOUNTER 2022-10-29 09:35 | Outpatient (CLI) | payer MEDICAID | END 2022-10-29 23:59 | disposition home or self-care (01) | LOC: LAB.N 09:35 | PROVIDERS: ATTEND Nurse Practitioner Family | DX: R19.7 Diarrhea, unspecified (principal) | CPT/HCPCS: 87045; 87046; 87427; 87493 ==

== ENCOUNTER → 2022-12-20 | Outpatient (CLI) | payer MEDICAID ==
--- NOTE | 2022-12-20 15:12 | CT Report ---
PROCEDURE: CHEST WO INDICATIONS: COUGH TECHNIQUE: Noncontrast 1mm axial images were acquired from the pulmonary apices to the posterior costophrenic an gles. Axial 5 mm soft tissue kernel reconstructions were performed as well as 8 mm axial MIP and cor onal and sagittal 5 mm reformations. For radiation dose reduction, the following was used: automate d exposure control, adjustment of mA and/or kV according to patient size. COMPARISON: CT 07/06/2022 FINDINGS: Image quality: Excellent. Lungs and pleura: No consolidation. No pleural effusions. No pneumothorax. Stable 5 mm juxtapleural nodule, right upper lobe (series 3, image 65). Stable 3 mm solid nodule, anterior right upper lobe (s eries 3, image 127). Remaining solid pulmonary nodules have resolved. Mediastinum: Heart size is normal. No pericardial effusion. No large vessel abnormality. No mediastin al adenopathy by size criteria. Three-vessel coronary calcifications. Chest wall and lower neck: Thyroid is not visualized No axillary or supraclavicular adenopathy by siz e. Bones: No aggressive osseous abnormality. Low bone mineralization. Upper Abdomen: Unremarkable. IMPRESSION: Many pulmonary nodules have resolved. The remaining nodules remain stable in size and appearance. Marked coronary artery calcifications for age. Consider cardiology referral. Low bone mineralization. Reviewed by: Torrey Arshad on 12/20/2022 3:10 PM PST Approved by: Torrey Arshad on 12/20/2022 3:10 PM [facility] Station ID: [id number]
== END ==
LOC: DI 12:37
PROVIDERS: ATTEND Nurse Practitioner
DX: R05.3 Chronic cough (principal); R91.8 Other nonspecific abnormal finding of lung field; I25.10 Atherosclerotic heart disease of native coronary artery without angina pectoris; M81.0 Age-related osteoporosis without current pathological fracture

== ENCOUNTER 2023-02-22 08:09 | Outpatient (CLI) | payer MEDICAID | END 2023-02-22 08:10 | disposition home or self-care (01) | LOC: RT 08:09 | PROVIDERS: ATTEND Physician Assistant | DX: J44.9 Chronic obstructive pulmonary disease, unspecified (principal) | CPT/HCPCS: 94010; 94729 ==

== ENCOUNTER 2023-02-27 11:05 | Outpatient (CLI) | payer MEDICAID ==
[2023-02-27 18:39] LABS: BASOPHILS # (AUTO) 0.1 10^3/uL (0.0-0.1); BASOPHILS % (AUTO) 0.8 %; EOSINOPHILS # (AUTO) 0.7 10^3/uL (0.0-0.7); EOSINOPHILS % (AUTO) 8.4 %; HGB - HEMOGLOBIN 10.8 g/dL (12.0-16.0); LYMPHOCYTES # (AUTO) 2.3 10^3/uL (1.5-3.5); LYMPHOCYTES % (AUTO) 29.3 %; MEAN CORPUSCULAR HEMOGLOBIN 25.8 pg (27.0-31.0); MEAN CORPUSCULAR VOLUME 86.1 fL (81.0-99.0); MEAN PLATELET VOLUME 9.6 fL (7.9-10.8); MONOCYTES # (AUTO) 0.7 10^3/uL (0.0-1.0); MONOCYTES % (AUTO) 8.5 %; NEUTROPHILS # (AUTO) 4.1 10^3/uL (1.5-6.6); NEUTROPHILS % (AUTO) 52.9 %; PLT - PLATELET COUNT 286 10^3/uL (130-450); RED BLOOD COUNT 4.18 10^6/uL (4.20-5.40); WHITE BLOOD COUNT 7.8 x10^3/uL (4.8-10.8)
[2023-02-27 19:00] LABS: CREATININE,URINE 183.3 mg/dL; MICROALBUM/CREATININE RATIO,UR 53.5 ug/mg (<30.0); MICROALBUMIN,URINE 9.8 mg/dL
[2023-02-27 19:37] LABS: ALBUMIN 3.5 g/dL (3.2-5.5); ALBUMIN/GLOBULIN RATIO 1.3 (1.0-2.2); ALKALINE PHOSPHATASE 179 IU/L (42-121); ALT ALANINE AMINOTRANSFERASE 37 IU/L (10-60); AST ASPARTATE AMINOTRANSFERASE 27 IU/L (10-42); BILIRUBIN,TOTAL 0.2 mg/dL (0.2-1.0); BUN - BLOOD UREA NITROGEN 8 mg/dL (6-20); CARBON DIOXIDE - CO2 26 mmol/L (21-32); CHLORIDE 105 mmol/L (101-111); CHOL/HDL RATIO 3.5 (<4.4); CHOLESTEROL 123 mg/dL; GFR - MDRD 57 (>89); GLUCOSE 250 mg/dL (74-104); HDL CHOLESTEROL 35 mg/dL; LDL CHOLESTEROL,CALCULATED 44 mg/dL; LDL/HDL RATIO 1.3 (<4.4); POTASSIUM 4.2 mmol/L (3.5-4.5); SODIUM 139 mmol/L (135-145); TOTAL PROTEIN 6.3 g/dL (6.4-8.9); TRIGLYCERIDES 221 mg/dL (48-352); VLDL CHOLESTEROL 44 mg/dL
[2023-02-27 20:08] LABS: THYROID STIMULATING HORMONE 0.01 uIU/mL (0.34-5.60)
[2023-02-27 21:54] LABS: ESTIMATED AVERAGE GLUCOSE 169 mg/dL (70-100); HEMOGLOBIN A1c% 7.5 % (4.27-6.07)
== END 2023-02-27 11:06 | disposition home or self-care (01) ==
LOC: LAB.N 11:05
PROVIDERS: ATTEND Nurse Practitioner Family
DX: I10 Essential (primary) hypertension (principal); E11.9 Type 2 diabetes mellitus without complications; E89.0 Postprocedural hypothyroidism
CPT/HCPCS: 36415; 80053; 80061; 82043; 82570; 83036; 83721; 84439; 84443; 85025

== ENCOUNTER 2023-08-21 09:15 | Outpatient (CLI) | payer MEDICAID ==
[2023-08-21 13:00] LABS: ESTIMATED AVERAGE GLUCOSE 146 mg/dL (70-100); HEMOGLOBIN A1c% 6.7 % (4.27-6.07)
[2023-08-21 13:06] LABS: ALBUMIN/GLOBULIN RATIO 1.2 (1.0-2.2); ALKALINE PHOSPHATASE 137 IU/L (42-121); ALT ALANINE AMINOTRANSFERASE 28 IU/L (10-60); AST ASPARTATE AMINOTRANSFERASE 23 IU/L (10-42); BILIRUBIN,TOTAL 0.3 mg/dL (0.2-1.0); BUN - BLOOD UREA NITROGEN 21 mg/dL (6-20); CALCIUM 9.8 mg/dL (8.5-10.3); CARBON DIOXIDE - CO2 31 mmol/L (21-32); CHLORIDE 98 mmol/L (101-111); CREATININE 1.5 mg/dL (0.6-1.3); GFR - MDRD 36 (>89); GLUCOSE 140 mg/dL (74-104); POTASSIUM 2.7 mmol/L (3.5-4.5); SODIUM 138 mmol/L (135-145); TOTAL PROTEIN 7.4 g/dL (6.4-8.9)
[2023-08-21 13:11] LABS: THYROID STIMULATING HORMONE < 0.01 uIU/mL (0.34-5.60)
== END 2023-08-21 09:16 | disposition home or self-care (01) ==
LOC: LAB.N 09:15
PROVIDERS: ATTEND Nurse Practitioner Family
DX: Z02.89 Encounter for other administrative examinations (principal); R74.8 Abnormal levels of other serum enzymes; I25.10 Atherosclerotic heart disease of native coronary artery without angina pectoris; E78.5 Hyperlipidemia, unspecified; Z79.899 Other long term (current) drug therapy; E11.9 Type 2 diabetes mellitus without complications; E89.0 Postprocedural hypothyroidism
CPT/HCPCS: 36415; 80053; 83036; 84439; 84443

== ENCOUNTER 2023-09-17 11:42 | Outpatient (CLI) | payer MEDICAID ==
[2023-09-17 12:14] LABS: CALCIUM 9.7 mg/dL (8.5-10.3); CREATININE 1.2 mg/dL (0.6-1.3); POTASSIUM 4.3 mmol/L (3.5-4.5)
== END 2023-09-17 11:43 | disposition home or self-care (01) ==
LOC: LAB 11:42
PROVIDERS: ATTEND Nurse Practitioner Family
DX: E87.6 Hypokalemia (principal)
CPT/HCPCS: 36415; 80048